=== PATIENT | male | born 1990 | race Caucasian/White ===

== ENCOUNTER 2017-12-07 14:22 | Day surgery (SDC) | payer OTHER ==
[2017-11-23 09:51] LABS: HEMATOCRIT 43.4 % (37.9-51.0); HEMOGLOBIN 14.7 g/dL (13.5-17.0); MEAN CORPUSCULAR HEMOGLOBIN 28.3 pg (27.0-33.4); MEAN CORPUSCULAR HGB CONC 33.9 g/dL (32.0-36.0); MEAN CORPUSCULAR VOLUME 83 fl (80-97); PLATELET COUNT 194 10^3/uL (150-450); RED BLOOD COUNT 5.21 10^6/uL (4.35-5.55); RED CELL DISTRIBUTION WIDTH 13.8 % (11.5-14.0); WHITE BLOOD COUNT 5.7 10^3/uL (4.0-10.5)
[~2017-12-07 14:22] MED LIST: CEFAZOLIN 1 GM/D5W RTU 1 GM/50 ML RTUPB IV PRN; LACTATED RINGERS 1000 ML IV PRN; LIDOCAINE 0.5% INJ-PF (5 MG/ML) 50 ML SDV SUBCUT PRN; SCOPOLAMINE HYDROBROMIDE 1.5 MG PATCH.TD72 TD PRN
--- NOTE | 2017-12-07 15:57 | Discharge Summary ---
Discharge Summary (SDC) - Discharge Final Diagnosis: GYNECOMASTIA Date of Surgery: 12/07/17 Discharge Date: 12/07/17 Condition: Stable Treatment or Instructions: [facility] [address] [place] [id number] WOUND CARE: 1) Leave compression dressing on for 24 hours after surgery. At that time you may remove dressing but leave steri strips underneath intact until your follow up appointment. 2) You may shower in 48 hours. Do not remove steri strips. Warm water and soap may wash over the area. Do not scrub. Pat dry and cover if needed. PAIN MANAGEMENT: 1) You may take Toradol 10 mg one pill by mouth every six hours as needed for pain. FOLLOW UP: 1) Follow up at [facility] in 10-14 days. Call clinic sooner with questions/concerns or if area becomes red, swollen, foul-smelling drainage. Prescriptions: Ketorolac Tromethamine [Toradol 10 mg Tablet] 10 mg PO Q6HP PRN #20 tablet PRN Reason: Referrals: INGRIS MANCILLA PA [Primary Care Provider] - Discharge Diet: As Tolerated Discharge Activity: Activity As Tolerated, Walk Frequently Report the Following to Your Physician Immediately: Fever over 101 Degrees, Unusual Bleeding, Redness, Swelling, Warmth, Drainage-Foul Smelling
[2017-12-07] MEDS ORDERED: FENTANYL CITRATE INJ/PF 250 MCG/5 ML AMPULE ONE (16:00)
[2017-12-07] MEDS ORDERED: ACETAMINOPHEN 100 ML IV ONE (16:00)
[2017-12-07] MEDS ORDERED: PROPOFOL INJ 200 MG/20 ML VIAL IV ONE (16:00)
[2017-12-07] MEDS ORDERED: MIDAZOLAM 2 MG/2 ML INJ ONE ×2 (16:00→16:20)
[2017-12-07] MEDS ORDERED: ONDANSETRON HCL INJ/PF 4 MG/2 ML SDV ONE (16:00)
[2017-12-07] MEDS ORDERED: BUPIVACAINE HCL 0.25 % INJ/PF (2.5 MG/1 ML) 30 ML VIAL ONE (16:31)
[2017-12-07] MEDS ORDERED: MICROFIBRILLAR COLLAGEN 1 GM PACK TP ONE (16:51)
[2017-12-07] MEDS ORDERED: MICROFIBRILLAR COLLAGEN 1 GM PACK ONE (16:52)
[2017-12-07] MEDS ORDERED: MEPERIDINE HCL/PF INJ 25 MG/1 ML DISP.SYRIN IV PRN (16:54)
[2017-12-07] MEDS ORDERED: PROMETHAZINE HCL INJ 25 MG/1 ML VIAL IV PRN ×2 (16:54)
[2017-12-07] MEDS ORDERED: OXYCODONE-ACETAMINOPHEN 5-325 MG TABLET PO PRN ×3 (16:54→17:06)
[2017-12-07] MEDS ORDERED: FENTANYL CITRATE INJ/PF 100 MCG/2 ML AMPUL IV PRN ×3 (16:54)
[2017-12-07] MEDS ORDERED: DIPHENHYDRAMINE HCL 50 MG/ML VIAL IV PRN (16:54)
--- NOTE | 2017-12-07 17:06 | Operative Report ---
Operative Report DATE OF SURGERY: 12/07/17 PREOPERATIVE DIAGNOSIS: Gynecomastia right breast POSTOPERATIVE DIAGNOSIS: Same OPERATION: Open excision of gynecomastia right breast SURGEON: LORI HAMEED 1ST PHOTOCOMPOSING MACHINE OPERATOR: MARLENE BARTLETT ANESTHESIA: LMAC TISSUE REMOVED OR ALTERED: Right breast mass COMPLICATIONS: None ESTIMATED BLOOD LOSS: Scant INTRAOPERATIVE FINDINGS: See below PROCEDURE: The patient was seen in the preop holding area with right breast was marked. He was then taken to the main operating room where LMAC anesthesia was induced. Right arm was abducted right breast prepped and draped sterile fashion. Surgical plan surgical timeout. The right breast was inspected by palpation. There is gynecomastia involved the upper breast and approximately two thirds of the upper portion of the areole complex. The gynecomastia extends several centimeters laterally. The skin was anesthetized with quarter percent Marcaine. An incision was made with a #15 blade along the areaOlar border from approximately 930 up past 12:00 and down to approximately 3 o'clock position. This was therefore a curvilinear incision. We then elevated the skin in a circumferential fashion off of the subcutaneous and breast tissue. We took the level of dissection down to the chest wall in a circumferential fashion thereby mobilizing a mass of breast tissue approximately 4 x 4 x 3 cm. This disc of tissue was removed and on the back table bisected. It appeared to be consistent with fibrofatty tissue or gynecomastia. There was no marking of the tissue proper. It was sent to pathology for permanent analysis We checked the recesses of the wound for any bleeding there was none. We carefully inspected and palpated the transition from the subcutaneous tissue to the edge of resection and we felt that the requisite amount of gynecomastia had been removed. The nipple and areola were in excellent condition, with excellent viability. We felt the wound was satisfactory for closure. Avitene was diluted and placed into the wound as a slurry. The wound was closed with multiple interrupted 2-0 Vicryl sutures, benzoin and Steri-Strips. A dressing was applied with 4 x 4's and tape. Patient tolerated procedure well, taken recovery in stable condition. The physician surgical assistant, Ms. Joiner, provided assistance during this case by: assisting with retracting tissue, instillation of local anesthesia and closure of skin incisions.
[2017-12-07 18:56] VITALS: BP 119/77
== END 2017-12-07 18:40 | disposition home or self-care (01) ==
LOC: OROUT 14:22
PROVIDERS: ATTEND Surgery
DX: N62 Hypertrophy of breast (principal)
CPT/HCPCS: 36415; 85027; 88307 ×2; 19304; J2250; J0690; J3010; J2405; J3490; J2704; J0131; 400